=== PATIENT | female | born 1930 | race Hispanic/Latino ===

== ENCOUNTER 2016-11-23 09:28 | Outpatient (CLI) | payer MEDICARE ==
--- NOTE | 2016-11-23 12:31 | Magnetic Resonance Report ---
MR BRAIN WITH AND WITHOUT CONTRAST: HISTORY: Syncope, dizziness. TECHNIQUE: Multisequence, multiplanar MRI before and after IV gadolinium. Thin collimation postcontrast images through the internal auditory canals. FINDINGS: Mild cortical volume loss and chronic white matter changes are identified which appear appropriate for this person's age. No evidence for acute ischemia, hemorrhage, mass or extra-axial fluid collection. No chronic infarct. Ventricular size is within normal limits. The basal cisterns are clear. Normal flow voids are identified near the ken[place]ze of [place]. Thin collimation images through the sella turcica demonstrate normal cranial 7/8 nerve complexes bilaterally. There is no evidence for abnormal intracanalicular enhancement or cerebellopontine angle mass. IMPRESSION: Senescent changes. Unremarkable MRI brain for age. No evidence for acoustic neuroma.
== END 2016-11-23 09:29 | disposition home or self-care (01) ==
LOC: MRI 09:28
PROVIDERS: ATTEND Internal Medicine
DX: R42 Dizziness and giddiness (principal)
CPT/HCPCS: 70553; A9577